=== PATIENT | female | born 2000 | race Caucasian/White ===

== ENCOUNTER → 2023-02-10 11:18 | Outpatient (CLI) | payer BC, SELFPAY ==
--- NOTE | ~2023-02-10 | US_ITS ---
EXAMINATION: US pelvic complete DATE: 02/10/2023 11:46 INDICATION: Other specified abnormal uterine and vaginal bleed TECHNIQUE: Multiple transabdominal and endovaginal sonographic images of the pelvis were obtained. COMPARISON: None. FINDINGS: Uterus: 6.2 x 3.2 x 4.7 cm. IUD, positioned within the lower uterine segment. Endometrial complex bhavik sures 3 mm. Right Ovary: 6.0 x 6.6 x 6.9 cm. Vascular flow is present. 6.7 cm simple cyst. Left Ovary: 4.7 x 2.5 x 4.4 cm. Vascular flow is present. No adnexal mass. There is no free fluid in the pelvis. IMPRESSION: The IUD appears to be low positioned, in the lower uterine segment, correlate with pelvic examination findings and consider replacement. 6.7 cm simple right ovarian cyst, consider ultrasound follow-up in 2-6 months for resolution/3 charac terization. Reviewed, dictated and finalized at location K. IMPRESSION: The IUD appears to be low positioned, in the lower uterine segment, correlate w ith pelvic examination findings and consider replacement. 6.7 cm simple right ovarian cyst, consider ultrasound follow-up in 2-6 months f or resolution/3 characterization.
== END ==
PROVIDERS: PCP Nurse Practitioner; Visit Provider Nurse Practitioner
DX: N93.8 Other specified abnormal uterine and vaginal bleeding (principal); Z97.5 Presence of (intrauterine) contraceptive device; N83.201 Unspecified ovarian cyst, right side
CPT/HCPCS: 76856

== ENCOUNTER → 2023-05-14 11:50 | Outpatient (CLI) | payer BC, SELFPAY ==
--- NOTE | ~2023-05-14 | US_ITS ---
EXAMINATION: US pelvic complete DATE: 05/14/2023 12:07 INDICATION: Follow-up ovarian cyst. IUD present. Comparison:Comparison to ultrasound dated 02/10/2023 TECHNIQUE: Multiple transabdominal and endovaginal sonographic images of the pelvis performed. FINDINGS: The uterus measures 7.9 x 3.7 x 3.7 cm. There is an IUD present in the endometrium. The end ometrial complex measures 7 mm. The right ovary measures 7.3 x 7.2 x 6 cm and the left ovary measures 3.5 x 2.6 x 2.4 cm. There is a simple right ovarian cyst measuring 6.3 x 6.7 x 5.3 cm. There are small follicles in each ovary. Norm al doppler signal in both ovaries. There is no free fluid in the pelvis. There are no abnormal masses seen on either side. IMPRESSION: 1. IUD in expected position in the endometrium. 2: Simple cyst of the right ovary measuring 6.7 cm. Reviewed, dictated and finalized at location B. 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
== END ==
PROVIDERS: PCP Obstetrics & Gynecology Gynecology; Visit Provider Obstetrics & Gynecology Gynecology
DX: N83.201 Unspecified ovarian cyst, right side (principal); Z97.5 Presence of (intrauterine) contraceptive device
CPT/HCPCS: 76856